=== PATIENT | female | born 1955 | race Hispanic/Latino ===

== ENCOUNTER 2021-09-14 09:57 | Inpatient (IN) | payer OTHER ==
[2021-09-14 09:30] VITALS: BP 99/64
[2021-09-14] MEDS ORDERED: NITROGLYCERIN 0.4 MG SL TAB SL PRN (13:30)
[2021-09-14] MEDS ORDERED: DiphenhydrAMINE HCL 50 MG/ML VIAL IV PRN (13:30)
[2021-09-14] MEDS ORDERED: ONDANSETRON 4MG INJ IV PRN (13:30)
[2021-09-14] MEDS: LACTATED RINGERS 1000ML 1,000 ML IV SCH (14:16)
[2021-09-14 16:30] VITALS: BP 131/77
[2021-09-14 20:00] VITALS: BP 136/73
[2021-09-14] MEDS: FAMOTIDINE 20MG VIAL IV SCH (20:57)
[2021-09-15] VITALS (25 sets, daily range): BP systolic 118–148; BP diastolic 65–86
[2021-09-15] MEDS: LACTATED RINGERS 1000ML 1,000 ML IV SCH ×3 (02:50→16:10)
[2021-09-15 04:07] LABS: HEMATOCRIT 33.3 % (36-48); MEAN CORPUSCULAR HEMOGLOBIN 22.4 pg (27.0-33.0); MEAN CORPUSCULAR VOLUME 74.7 fL (79-99); PLATELET COUNT (AUTO) 314 K/uL (130-400); RED BLOOD CELL COUNT(AUTO) 4.46 MIL/uL (4.00-5.50); RED CELL DISTRIBUTION WIDTH 15.7 % (11.0-15.5); WHITE BLOOD COUNT (AUTO) 12.6 K/uL (4.8-10.8)
[2021-09-15 04:19] LABS: INR 1.1 (0.85-1.15); PROTHROMBIN TIME 11.9 SEC (9.6-11.6)
[2021-09-15 04:21] LABS: PARTIAL THROMBOPLASTIN TIME 26.8 SEC (26.3-35.5)
[2021-09-15 04:24] LABS: CREATININE 0.7 mg/dL (0.5-1.5); POTASSIUM 3.7 mmol/L (3.5-5.1)
[2021-09-15] MEDS ORDERED: MIDAZOLAM HCL 1 MG/ML 2ML VIAL ONE ×2 (07:22→09:56)
[2021-09-15] MEDS ORDERED: PROPOFOL 10 MG/ML 20ML VIAL IV ONE (07:22)
[2021-09-15] MEDS ORDERED: FENTANYL CITRATE PF 50 MCG/1 ML 2ML VIAL ONE (07:22)
[2021-09-15] MEDS ORDERED: DEXAMETHASONE SOD PHOSPHATE 10MG/ML 1ML VIAL ONE (07:22)
[2021-09-15] MEDS ORDERED: ONDANSETRON 4MG INJ ONE (07:22)
[2021-09-15] MEDS ORDERED: LIDOCAINE PF 100MG/5ML (2%) SYRINGE 5ML ONE (07:22)
[2021-09-15] MEDS ORDERED: SUCCINYLCHOLINE CHLORIDE 20 MG/ML 10 ML VIAL ONE (07:23)
[2021-09-15] MEDS ORDERED: EPINEPHRINE PF 1MG AMP ONE (07:26)
[2021-09-15] MEDS ORDERED: PHENYLEPHRINE HCL 10 MG/ML 1ML VIAL IV ONE (07:27)
[2021-09-15] MEDS ORDERED: CLINDAMYCIN IVPB 600MG/50ML 50 ML IV SCH (07:30)
[2021-09-15] MEDS ORDERED: EPHEDRINE SULFATE 50 MG/ML AMPULE ONE (07:32)
[2021-09-15] MEDS ORDERED: KETAMINE 50MG/ML SYRINGE 50 MG/ML DISP.SYRIN IV ONE (07:33)
[2021-09-15] MEDS: FAMOTIDINE 20MG VIAL IV SCH ×2 (09:00→20:47)
[2021-09-15] MEDS ORDERED: CLINDAMYCIN 900MG/6ML INJ ONE (10:26)
[2021-09-15] MEDS ORDERED: LIDOCAINE HCL 1% 20 ML VIAL ONE (10:39)
[2021-09-15 13:14] LABS: PH, BODY FLUID 8
[2021-09-15] MEDS ORDERED: GENTAMICIN 15 GM CREAM TP SCH (15:30)
[2021-09-16] VITALS (7 sets, daily range): BP systolic 115–143; BP diastolic 61–79
[2021-09-16 03:57] LABS: HEMATOCRIT 33.1 % (36-48); MEAN CORPUSCULAR HEMOGLOBIN 22.1 pg (27.0-33.0); MEAN CORPUSCULAR HGB CONC 29.9 g/dL (32.0-36.0); MEAN CORPUSCULAR VOLUME 73.9 fL (79-99); RED BLOOD CELL COUNT(AUTO) 4.48 MIL/uL (4.00-5.50); RED CELL DISTRIBUTION WIDTH 15.5 % (11.0-15.5); WHITE BLOOD COUNT (AUTO) 11.4 K/uL (4.8-10.8)
[2021-09-16 04:08] LABS: CREATININE 0.6 mg/dL (0.5-1.5)
[2021-09-16] MEDS: LACTATED RINGERS 1000ML 1,000 ML IV SCH (04:37)
[2021-09-16] MEDS: FAMOTIDINE 20MG VIAL IV SCH ×2 (08:44→20:28)
[2021-09-16] MEDS ORDERED: ACETAMINOPHEN WITH CODEINE 1 TAB TAB PO PRN ×2 (10:00)
[2021-09-16] MEDS ORDERED: ONDANSETRON 4MG INJ IVP PRN (10:00)
[2021-09-17 04:02] LABS: BASOPHILS % (AUTO) 0.2 % (0.0-5.0); EOSINOPHILS % (AUTO) 0.7 % (0.0-8.0); HEMATOCRIT 33.3 % (36-48); LYMPHOCYTES % (AUTO) 10.4 % (21.0-51.0); MEAN CORPUSCULAR HEMOGLOBIN 22.1 pg (27.0-33.0); MEAN CORPUSCULAR HGB CONC 29.7 g/dL (32.0-36.0); MEAN CORPUSCULAR VOLUME 74.3 fL (79-99); MONOCYTES % (AUTO) 6.6 % (3.0-13.0); NEUTROPHILS % (AUTO) 81.7 % (40.0-77.0); PLATELET COUNT (AUTO) 299 K/uL (130-400); RED BLOOD CELL COUNT(AUTO) 4.48 MIL/uL (4.00-5.50); RED CELL DISTRIBUTION WIDTH 15.5 % (11.0-15.5); WHITE BLOOD COUNT (AUTO) 12.1 K/uL (4.8-10.8)
[2021-09-17 04:03] VITALS: BP 135/76
[2021-09-17 04:27] LABS: % IRON SATURATION 5.5 % (22-44)
[2021-09-17 04:44] LABS: ALBUMIN 2.1 g/dL (3.5-5.0); BILIRUBIN,TOTAL 0.3 mg/dL (0.2-1.0); CREATININE 0.6 mg/dL (0.5-1.5); POTASSIUM 3.7 mmol/L (3.5-5.1); THYROID STIMULATING HORMONE 5.66 uIU/mL (0.36-3.74); TOTAL PROTEIN, SERUM 6.5 g/dL (6.0-8.3)
[2021-09-17 07:00] VITALS: BP 148/75
[2021-09-17] MEDS: FAMOTIDINE 20MG TAB PO SCH ×2 (08:18→20:16)
[2021-09-17 11:00] VITALS: BP 136/69
[2021-09-17 16:00] VITALS: BP_SYST 101; BP_SYST 141; BP_DIAS 61
[2021-09-17 20:00] VITALS: BP 149/74
[2021-09-18] VITALS (7 sets, daily range): BP systolic 101–156; BP diastolic 68–75
[2021-09-18 04:31] LABS: BASOPHILS % (AUTO) 0.4 % (0.0-5.0); EOSINOPHILS % (AUTO) 0.8 % (0.0-8.0); LYMPHOCYTES % (AUTO) 8.5 % (21.0-51.0); MEAN CORPUSCULAR HGB CONC 29.7 g/dL (32.0-36.0); MEAN CORPUSCULAR VOLUME 74.2 fL (79-99); NEUTROPHILS % (AUTO) 83.9 % (40.0-77.0); PLATELET COUNT (AUTO) 286 K/uL (130-400); RED BLOOD CELL COUNT(AUTO) 4.72 MIL/uL (4.00-5.50); RED CELL DISTRIBUTION WIDTH 15.6 % (11.0-15.5); WHITE BLOOD COUNT (AUTO) 12.2 K/uL (4.8-10.8)
[2021-09-18 04:55] LABS: ALBUMIN 2.1 g/dL (3.5-5.0); BILIRUBIN,TOTAL 0.4 mg/dL (0.2-1.0); CREATININE 0.5 mg/dL (0.5-1.5); POTASSIUM 3.4 mmol/L (3.5-5.1); TOTAL PROTEIN, SERUM 6.9 g/dL (6.0-8.3)
[2021-09-18] MEDS: FAMOTIDINE 20MG TAB PO SCH ×2 (08:29→19:54)
[2021-09-19 03:54] VITALS: BP 131/64
[2021-09-19 04:44] LABS: BASOPHILS % (AUTO) 0.4 % (0.0-5.0); HEMATOCRIT 33.4 % (36-48); LYMPHOCYTES % (AUTO) 7.2 % (21.0-51.0); MEAN CORPUSCULAR HEMOGLOBIN 21.7 pg (27.0-33.0); MEAN CORPUSCULAR HGB CONC 29.9 g/dL (32.0-36.0); MEAN CORPUSCULAR VOLUME 72.5 fL (79-99); MONOCYTES % (AUTO) 6.1 % (3.0-13.0); NEUTROPHILS % (AUTO) 84.6 % (40.0-77.0); PLATELET COUNT (AUTO) 282 K/uL (130-400); RED BLOOD CELL COUNT(AUTO) 4.61 MIL/uL (4.00-5.50); RED CELL DISTRIBUTION WIDTH 15.6 % (11.0-15.5); WHITE BLOOD COUNT (AUTO) 13.4 K/uL (4.8-10.8)
[2021-09-19 05:24] LABS: ALBUMIN 2.1 g/dL (3.5-5.0); BILIRUBIN,TOTAL 0.5 mg/dL (0.2-1.0); CREATININE 0.5 mg/dL (0.5-1.5); POTASSIUM 3.5 mmol/L (3.5-5.1); TOTAL PROTEIN, SERUM 6.9 g/dL (6.0-8.3)
[2021-09-19 07:38] VITALS: BP 123/70
[2021-09-19] MEDS: FAMOTIDINE 20MG TAB PO SCH (08:12)
[2021-09-19 11:07] VITALS: BP 120/64
[2021-09-19 15:35] VITALS: BP 131/68
[2021-09-19] MEDS ORDERED: ONDA4TAB4 PO (16:13)
[2021-09-19] MEDS ORDERED: TYL3B PO (16:13)
== END 2021-09-19 17:20 | disposition home or self-care (01) | DRG 270 ==
LOC: 4DH 12:22
PROVIDERS: ADMIT Internal Medicine; ATTEND Internal Medicine
PROC: 0W9D0ZZ Drainage of Pericardial Cavity, Open Approach (ICD-10-PCS; principal; 2021-09-15 10:26)
DX: I31.4 Cardiac tamponade (principal); E43 Unspecified severe protein-calorie malnutrition; C79.51 Secondary malignant neoplasm of bone; C78.00 Secondary malignant neoplasm of unspecified lung; J94.2 Hemothorax; I31.3 Pericardial effusion (noninflammatory); C50.912 Malignant neoplasm of unspecified site of left female breast; Z20.822 Contact with and (suspected) exposure to COVID-19; R59.0 Localized enlarged lymph nodes; Z88.0 Allergy status to penicillin; Z17.0 Estrogen receptor positive status [ER+]
CPT/HCPCS: 36415; 71045; 80048; 80053; 82607; 82728; 82746; 83540; 83550; 83615; 83986; 84145; 84157; 84443; 85025; 85027; 85045; 85610; 85730; 86850; 86900; 86901; 86922; 87071; 87076; 87205; 87635; 93005; 97039; A7048; G0378; J0171; J0330; J1100; J2001; J2250; J2370; J2405; J2704; J3010; J3490; J7120